=== PATIENT | female | born 2000 | race Caucasian/White ===

== ENCOUNTER 2021-12-28 22:33 | Emergency (ER) | payer SELFPAY ==
[~2021-12-28] VITALS: Ht 154.9 cm; Wt 73.0 kg
[2021-12-28 22:51] VITALS: BP 115/70
[2021-12-29] MEDS ORDERED: LIDOCAINE HCL 1% 20ML VIAL (Pyxis) INJ INFIL ONE (05:00)
[2021-12-29] MEDS ORDERED: LIDOCAINE HCL/EPINEPHRINE 1%-EPI 1:100,000 10 ML VIAL INFIL NR (05:30)
[2021-12-29] MEDS ORDERED: CLINDAMYCIN HCL 150MG CAPSULE PO ONE (06:00)
[2021-12-29] MEDS ORDERED: CEFI400C4 PO (06:18)
[2021-12-29] MEDS ORDERED: CLIN-194 MT (06:18)
[2021-12-29] MEDS ORDERED: IBUP-2029 MT (06:18)
== END 2021-12-29 06:30 | disposition home or self-care (01) ==
LOC: ER 22:33
DX: N75.0 Cyst of Bartholin's gland (principal)
CPT/HCPCS: 81025; 99282; J3490; Z7610